=== PATIENT | male | born 1970 | race African-American/Black ===

== ENCOUNTER 2017-05-06 13:31 | Emergency (ER) | payer MEDICAID ==
[~2017-05-06] VITALS: Ht 185.4 cm; Wt 105.0 kg
[~2017-05-06 13:31] MED LIST: POLY10O EACH EYE; ZITH250T PO
[2017-05-06 13:33] VITALS: BP 147/67; PULSE 76; RESP 20; TEMP 98.8; O2SAT 98
[2017-05-06] MEDS ORDERED: DICL75TA PO (14:10)
[2017-05-06] MEDS ORDERED: PENI500T PO (14:10)
[2017-05-06] MEDS ORDERED: MAGICADU2 SWISH-SWAL (14:10)
--- NOTE | 2017-05-06 14:14 | PD ---
HPI Chief Complaint: Oral / Dental Pain or Problem Time Seen by Provider: 14:00 Travel History International Travel<30 days: No Contact w/Intl Traveler<30days: No Traveled to known affect area: No History of Present Illness HPI 47-year-old male presents for evaluation of dental pain. Symptoms started yesterday. Pain is a throbbing pain localized to the left maxillary gumline surrounding the left maxillary canine. Pain is worse with chewing. He has been using Advil but symptoms persisted which prompted evaluation. There is some swelling of the gumline associated with the pain. He plans on following up with a local dentist to have the tooth extracted. He has had issues with this tooth in the past. No fevers, chills. No other complaints. [facility] Social History Alcohol Use: Yes Tobacco Use: Yes Allergies-Medications (Allergen,Severity, Reaction): Coded Allergies: No Known Allergies (Unverified , 05/06/17) Reported Meds & Prescriptions Reported Meds & Active Scripts Active Zithromax Z-Dilip (Azithromycin) 250 Mg Tab 250 Mg PO DIRECTED 5 Days 500 MG (2 TABLETS) PO ON DAY 1, THEN 250 MG (1 TABLET) PO ON DAYS 2 TO 5. Polytrim Opth (Polymyxin/Trimethoprim Sulfate) 10 Ml Soln 1 Drop EACH EYE Q3 7 Days Review of Systems General / Constitutional: No: Fever, Chills HENT: Positive: Dental Difficulties Physical Exam Narrative GENERAL: Well-developed well-nourished male in no acute distress SKIN: Warm and dry. HEAD: Atraumatic. Normocephalic. EYES: Pupils equal and round. No scleral icterus. No injection or drainage. ENT: No nasal bleeding or discharge. Mucous membranes pink and moist. The left maxillary canine is decayed at the root. The surrounding gumline is edematous and erythematous and tender to palpation. NECK: Trachea midline. No JVD. No lymphadenopathy or submandibular edema. Data Data Last Documented VS Vital Signs Date Time Temp Pulse Resp B/P Pulse Ox O2 Delivery O2 Flow Rate FiO2 05/06/17 13:33 98.8 76 20 147/67 98 Room Air MDM Medical Decision Making Medical Screen Exam Complete: Yes Emergency Medical Condition: Yes Medical Record Reviewed: Yes Differential Diagnosis Dental caries, pericoronitis, periodontal abscess, pulpitis Narrative Course 47-year-old male presents with one-day history of dental pain. Examination reveals dental decay localized to the left maxillary canine, the surrounding gumline is erythematous and tender to palpation. The plan is to treat the patient with penicillin, NSAIDs, outpatient follow-up with dentist for definitive therapy. Diagnosis Primary Impression: Dental caries Additional Impression: Periodontal abscess Referrals: Dentist Additional Instructions: Medication as prescribed. Avoid tobacco products. Do not take Advil/ibuprofen based products when taking diclofenac because they are in the same class of medication. Follow-up with dentist for definitive therapy. Return for any emergent medical conditions. Med/Other Pt SpecificInfo: Prescription(s) given Scripts Aodyezus-Hjbvmchtvljgdyh-Hlqdrvctw Liq (Magic Mouthwash Adult Liq)120 Ml Susp10 Ml SWISH-SWAL ACHS #120 ML Ref 1 Each 5mL contains: Nystatin 200,000units, Diphenhydramine 4.25mg, Viscous Lidocaine 10mg, Barrera syrup 0.8 mL Prov:Shanell Cabrera DO 05/06/[address] 75 Mg Tabdr75 Mg PO BID 10 Days Ref 0 Prov:Shanell Cabrera DO 05/06/17 Penicillin V Potassium 500 Mg Wtw045 Mg PO Q8H 10 Days Ref 0 Prov:Shanell Cabrera DO 05/06/17 Disposition: 01 DISCHARGE HOME Condition: Stable Santiago Ibanez May 06, 2017 14:14
== END 2017-05-06 14:47 | disposition home or self-care (01) ==
LOC: NEPK 13:31
DX: K02.9 Dental caries, unspecified (principal); K05.219 Aggressive periodontitis, localized, unspecified severity; Z72.0 Tobacco use
CPT/HCPCS: 99284

== ENCOUNTER 2017-05-20 08:06 | Emergency (ER) | payer MEDICAID ==
[~2017-05-20] VITALS: Ht 185.4 cm; Wt 104.0 kg
[2017-05-20 08:08] VITALS: BP 125/78; PULSE 74; RESP 14; TEMP 98.8; O2SAT 98
--- NOTE | 2017-05-20 08:15 | PD ---
HPI Chief Complaint: Skin Problem Time Seen by Provider: 08:14 Travel History International Travel<30 days: No Contact w/Intl Traveler<30days: No Traveled to known affect area: No History of Present Illness HPI 47-year-old Afro-[place] male presents the emergency department with a lesion on his left dorsal wrist, which she states has been present for over 2 weeks. Patient felt that was an insect bite at first and he continues to be itchy and draining occasionally. He states no fever, chills, or history of IV drug use. The area is firm with a centralized area with small scab. It is slightly raised. It does not interfere with any of his activities of daily living. Pain is minimal. Patient was recently treated for a dental infection with penicillin. He has no known drug allergies. [facility] Social History Alcohol Use: Yes Tobacco Use: Yes Substance Use: No Allergies-Medications (Allergen,Severity, Reaction): Coded Allergies: No Known Allergies (Unverified , 05/20/17) Reported Meds & Prescriptions Reported Meds & Active Scripts Active Reported Penicillin V Potassium 500 Mg Tab 500 Mg PO Q8H Review of Systems Except as stated in HPI: all other systems reviewed are Neg General / Constitutional: No: Fever Eyes: No: Visual changes HENT: No: Headaches Cardiovascular: No: Chest Pain or Discomfort Respiratory: No: Shortness of Breath Gastrointestinal: No: Abdominal Pain Genitourinary: No: Dysuria Musculoskeletal: No: Pain Skin: Positive Lesions, No Rash Neurologic: No: Weakness Psychiatric: No: Depression Endocrine: No: Polydipsia Hematologic/Lymphatic: No: Easy Bruising Physical Exam Narrative GENERAL: Patient is in no acute distress. SKIN: Warm and dry. Patient has a nonerythematous firm raised lesion to the dorsal left wrist measuring approximately 5 mm in diameter, and raised approximately 2 mm. There is a central scab, but no signs of deep abscess or lymphangitis. It appears consistent with a keloid surrounding a central lesion. HEAD: Atraumatic. Normocephalic. EYES: Pupils equal and round. No scleral icterus. No injection or drainage. ENT: No nasal bleeding or discharge. Mucous membranes pink and moist. Pharynx is clear. No dental problems at this time. NECK: Trachea midline. Supple nontender. CARDIOVASCULAR: Regular rate and rhythm. RESPIRATORY: No accessory muscle use. Clear to auscultation. Breath sounds equal bilaterally. MUSCULOSKELETAL: Extremities without clubbing, cyanosis, or edema. No obvious deformities. NEUROLOGICAL: Awake and alert. No obvious cranial nerve deficits. Motor grossly within normal limits. Five out of 5 muscle strength in the arms and legs. Normal speech. PSYCHIATRIC: Appropriate mood and affect; insight and judgment normal. Data Data Last Documented VS Vital Signs Date Time Temp Pulse Resp B/P Pulse Ox O2 Delivery O2 Flow Rate FiO2 05/20/17 08:08 98.8 74 14 125/78 98 MDM Medical Decision Making Medical Screen Exam Complete: Yes Emergency Medical Condition: Yes Medical Record Reviewed: Yes Differential Diagnosis Nonhealing wound left wrist. Insect bite. Keloid. Narrative Course Patient is felt to have a localized keloid formation from previous insect bite. Patient will be treated with Bactroban ointment to the area after scrubbing twice a day for the next 2 weeks. Patient is instructed to keep the lesion covered with the ointment in place during this time. Patient should follow-up with mergers and acquisitions banker if symptoms do not improve or worsen as discussed. Diagnosis Primary Impression: Keloid of skin Additional Impression: Insect bite Qualified Code: W57.XXXA - Insect bite, initial encounter Referrals: [facility] [employer] Patient Instructions: General Instructions, Insect Bite or Sting (ED) Additional Instructions: Patient is felt to have a localized keloid formation from previous insect bite. Patient will be treated with Bactroban ointment to the area after scrubbing twice a day for the next 2 weeks. Patient is instructed to keep the lesion covered with the ointment in place during this time. Patient should follow-up with mergers and acquisitions banker if symptoms do not improve or worsen as discussed. Med/Other Pt SpecificInfo: Prescription(s) given Disposition: 01 DISCHARGE HOME Condition: Stable Buster Duncan May 20, 2017 08:14
[2017-05-20] MEDS ORDERED: PENI500T PO (08:18)
[2017-05-20] MEDS ORDERED: MUPI2%T TOPICAL (08:26)
== END 2017-05-20 08:47 | disposition home or self-care (01) ==
LOC: NEPK 08:06
DX: L91.0 Hypertrophic scar (principal); S60.862A Insect bite (nonvenomous) of left wrist, initial encounter; Z72.0 Tobacco use; W57.XXXA Bitten or stung by nonvenomous insect and other nonvenomous arthropods, initial encounter; Y93.9 Activity, unspecified; Y92.9 Unspecified place or not applicable; Y99.8 Other external cause status
CPT/HCPCS: 99283